=== PATIENT | female | born 1995 | race Two or more races ===

== ENCOUNTER 2017-10-26 20:23 | Emergency (ER) | payer MEDICAID, OTHER ==
[~2017-10-26] VITALS: Ht 170.2 cm; Wt 59.0 kg
[~2017-10-26 20:23] MED LIST: FERR325T50 PO; PREN-96 PO
[2017-10-26 20:37] VITALS: BP 100/54
== END 2017-10-27 01:01 | disposition left against medical advice (07) ==
LOC: ER 20:23
DX: N64.4 Mastodynia (principal); Z53.21 Procedure and treatment not carried out due to patient leaving prior to being seen by health care provider

== ENCOUNTER → 2019-10-26 | Emergency (ER) | payer MEDICAID ==
[~2019-10-26] VITALS: Ht 167.6 cm; Wt 59.0 kg
[~2019-10-26] MED LIST changes: +LIDOCAINE 1% HCL (LOCAL ANESTH.) INJ 20ML MDV IJ ONE
[2019-10-26 14:15] VITALS: BP 118/70
== END | disposition home or self-care (01) ==
LOC: ER 11:32
DX: S81.012A Laceration without foreign body, left knee, initial encounter (principal); Z79.899 Other long term (current) drug therapy; Z91.040 Latex allergy status; W25.XXXA Contact with sharp glass, initial encounter; Y93.89 Activity, other specified; Y92.89 Other specified places as the place of occurrence of the external cause; Y99.8 Other external cause status
CPT/HCPCS: 12002

== ENCOUNTER 2023-02-18 17:05 | Emergency (ER) | payer MEDICAID, OTHER ==
[~2023-02-18] VITALS: Ht 167.6 cm; Wt 65.1 kg
[~2023-02-18 17:05] MED LIST changes: -LIDOCAINE 1% HCL (LOCAL ANESTH.) INJ 20ML MDV IJ ONE
[2023-02-18 17:10] VITALS: BP 106/66; PULSE 70; RESP 14; O2SAT 98
== END 2023-02-18 20:39 | disposition home or self-care (01) ==
LOC: ER 17:05
DX: S61.215A Laceration without foreign body of left ring finger without damage to nail, initial encounter (principal); Z53.21 Procedure and treatment not carried out due to patient leaving prior to being seen by health care provider; W26.8XXA Contact with other sharp object(s), not elsewhere classified, initial encounter; Y93.89 Activity, other specified; Y92.89 Other specified places as the place of occurrence of the external cause; Y99.8 Other external cause status